=== PATIENT | female | born 1940 | race Caucasian/White ===

== ENCOUNTER 2022-11-26 05:20 | Inpatient (IN) | payer MEDICARE ==
[2022-11-26] VITALS (17 sets, daily range): BP systolic 55–138; BP diastolic 26–64
[~2022-11-26] VITALS: Ht 152.4 cm; Wt 75.9 kg
[~2022-11-26 05:20] MED LIST: APIX2.5T PO; ASPI-1444 PO; ATOR10TA69 PO; ATOR20TA65 PO; BUME1TAB6 PO; DOCU100C33 PO; DONE-51 PO; FAMO20TA8 PO; GABA-533 PO; ICOS1CAP PO; INSU500I SQ; LEVO88TA7 PO; LINA5TAB PO; METO-408 PO; SACU1TAB PO; SODIUM CHLORIDE 0.9% 1,000 ML ONE
[2022-11-26] MEDS ORDERED: DiphenhydrAMINE HCL 50 MG CAPSULE ONE (05:21)
[2022-11-26] MEDS ORDERED: ASPIRIN 81 MG CHEWABLE TABLET ONE (05:21)
[2022-11-26] MEDS ORDERED: DIAZEPAM 5 MG TABLET ONE (05:21)
[2022-11-26] MEDS ORDERED: SODIUM CHLORIDE 0.9% 1,000 ML IV ONE ×2 (05:30→10:15)
[2022-11-26 06:56] LABS: GLUCOMETER DEV NAME(LOC) SDS.; GLUCOSE,POINT OF CARE 238 MG/DL (70-110)
[2022-11-26] MEDS ORDERED: LIDOCAINE/PF 1% 30 ML VIAL ONE (07:00)
[2022-11-26] MEDS ORDERED: SODIUM BICARBONATE 50 MEQ/50 ML VIAL ONE (07:00)
[2022-11-26] MEDS ORDERED: IOHEXOL 300 MG/ML 100 ML VIAL ONE (07:00)
[2022-11-26] MEDS ORDERED: HEPARIN SODIUM 1000 UNITS/NS 1,000 ML ONE (07:00)
[2022-11-26] MEDS ORDERED: FentaNYL CITRATE PF 100 MCG/2 ML VIAL ONE (07:28)
[2022-11-26] MEDS ORDERED: MIDAZOLAM HCL 2 MG/2 ML VIAL ONE (07:28)
[2022-11-26] MEDS ORDERED: ASPIRIN 81 MG CHEWABLE TABLET PO ONE (07:30)
[2022-11-26] MEDS ORDERED: DiphenhydrAMINE HCL 50 MG CAPSULE PO ONE (07:30)
[2022-11-26] MEDS ORDERED: DIAZEPAM 5 MG TABLET PO ONE (07:30)
[2022-11-26] MEDS ORDERED: MIDAZOLAM HCL 2 MG/2 ML VIAL IVP ONE (08:00)
[2022-11-26] MEDS ORDERED: IOHEXOL 300 MG/ML 100 ML VIAL IARTER ONE (08:00)
[2022-11-26] MEDS ORDERED: LIDOCAINE 1% 30 ML/SOD BICARB 8.4% 4 ML SQ ONE (08:00)
[2022-11-26] MEDS ORDERED: FentaNYL CITRATE PF 100 MCG/2 ML VIAL IVP ONE ×3 (08:00→09:15)
[2022-11-26] MEDS ORDERED: HEPARIN SODIUM 1000 UNITS/NS 1,000 ML IARTER ONE (08:00)
[2022-11-26] MEDS ORDERED: HydrALAZINE HCL 20 MG/ML VIAL ONE ×2 (08:30→08:36)
[2022-11-26] MEDS ORDERED: NITROGLYCERIN 400 MCG/SUBLINGUAL SPRAY 4.9 GM BOTTLE SL ONE ×2 (08:32→08:45)
[2022-11-26] MEDS ORDERED: HydrALAZINE HCL 20 MG/ML VIAL IVP ONE ×2 (08:45)
[2022-11-26] MEDS ORDERED: PHENYLEPHRINE HCL IN 0.9% NACL 400 MCG/10 ML SYRINGE IVP ONE ×4 (09:19→09:30)
[2022-11-26] MEDS ORDERED: PHENYLEPHRINE 200 MG/D5%-WATER 250 ML IV PRN (09:30)
[2022-11-26] MEDS ORDERED: PHENYLEPHRINE 200 MG/D5%-WATER 250 ML IV ONE ×2 (09:31→09:49)
[2022-11-26] MEDS ORDERED: NALOXONE HCL 0.4 MG/ML VIAL ONE (09:58)
[2022-11-26] MEDS ORDERED: DEXTROSE 50%-WATER 25 GM/50 ML SYRINGE IVP PRN (17:00)
[2022-11-26] MEDS ORDERED: ACETAMINOPHEN 325 MG TABLET PO PRN (17:00)
[2022-11-26] MEDS ORDERED: DULO-114 PO (17:13)
[2022-11-26] MEDS ORDERED: FERR325T23 PO (17:13)
[2022-11-26] MEDS: ONDANSETRON HCL 4 MG/2 ML VIAL IVP PRN (17:21)
[2022-11-26] MEDS: INSULIN LISPRO 100 UNITS/ML SQ PRN ×2 (17:25→20:48)
[2022-11-26] MEDS ORDERED: [UNRECOGNIZED DRUG - OTHER] PO SCH (21:00)
[2022-11-26] MEDS ORDERED: DONEPEZIL HCL 10 MG TABLET PO SCH (21:00)
[2022-11-26] MEDS ORDERED: GABAPENTIN 400 MG CAPSULE PO SCH (21:00)
[2022-11-26] MEDS ORDERED: ATORVASTATIN CALCIUM 20 MG TABLET PO SCH (21:00)
[2022-11-26] MEDS ORDERED: NOREPINEPHRINE 8 MG/D5%-WATER 250 ML IV ONE (22:14)
[2022-11-26 22:18] LABS: BASOPHILS % (AUTO) 0.5 % (0.0-2.0); EOSINOPHILS % (AUTO) 0 % (1.0-6.0); HEMATOCRIT 33.8 % (36-46); HEMOGLOBIN 10.7 g/dL (12.0-16.0); LYMPHOCYTES # (AUTO) 0.7 K/uL (1.0-4.8); LYMPHOCYTES % (AUTO) 5.5 % (22.0-44.0); MEAN CORPUSCULAR HEMOGLOBIN 28.4 pg (26.0-34.0); MEAN CORPUSCULAR HGB CONC 31.7 G/dL (31.0-37.0); MEAN CORPUSCULAR VOLUME 90 fL (80-100); MONOCYTES # (AUTO) 0.7 K/uL (0.1-1.0); MONOCYTES % (AUTO) 5.9 % (2.0-9.0); NEUTROPHILS # (AUTO) 10.7 K/uL (1.8-7.7); NEUTROPHILS % (AUTO) 88.1 % (40.0-70.0); PLATELET COUNT (AUTO) 246 K/uL (150-450); RED BLOOD CELL COUNT(AUTO) 3.77 MIL/uL (4.00-5.20); RED CELL DISTRIBUTION WIDTH 15.5 % (11.5-14.5)
[2022-11-26 22:26] LABS: CALCIUM, TOTAL 8.6 mg/dL (8.8-10.5); CREATININE 2.52 mg/dL (0.60-1.30); POTASSIUM 5.8 mmol/L (3.5-5.1)
[2022-11-26 22:32] LABS: ALBUMIN 2.8 g/dL (3.4-5.0); BILIRUBIN,TOTAL 0.3 mg/dL (0.1-1.0); TOTAL PROTEIN, SERUM 7.1 g/dL (6.4-8.2)
[2022-11-26 22:36] LABS: LACTIC ACID 4.2 mmol/L (0.4-2.0)
[2022-11-26] MEDS ORDERED: NOREPINEPHRINE 8 MG/D5%-WATER 250 ML IV PRN (22:45)
[2022-11-26] MEDS ORDERED: DOPamine 400MG/D5W[STANDARD] 250 ML IV PRN (23:30)
[2022-11-27] VITALS: BP 96/57
[2022-11-27 04:00] VITALS: BP 127/44
[2022-11-27 05:20] LABS: BASOPHILS % (AUTO) 0.6 % (0.0-2.0); EOSINOPHILS % (AUTO) 0 % (1.0-6.0); HEMATOCRIT 31.1 % (36-46); HEMOGLOBIN 9.9 g/dL (12.0-16.0); LYMPHOCYTES # (AUTO) 0.9 K/uL (1.0-4.8); LYMPHOCYTES % (AUTO) 6.4 % (22.0-44.0); MEAN CORPUSCULAR HEMOGLOBIN 28.7 pg (26.0-34.0); MEAN CORPUSCULAR HGB CONC 31.8 G/dL (31.0-37.0); MEAN CORPUSCULAR VOLUME 90 fL (80-100); MONOCYTES # (AUTO) 1.4 K/uL (0.1-1.0); MONOCYTES % (AUTO) 9.7 % (2.0-9.0); NEUTROPHILS # (AUTO) 12.2 K/uL (1.8-7.7); NEUTROPHILS % (AUTO) 83.3 % (40.0-70.0); PLATELET COUNT (AUTO) 218 K/uL (150-450); RED BLOOD CELL COUNT(AUTO) 3.45 MIL/uL (4.00-5.20); RED CELL DISTRIBUTION WIDTH 15.9 % (11.5-14.5)
[2022-11-27] MEDS: INSULIN LISPRO 100 UNITS/ML SQ PRN ×3 (05:32→17:44)
[2022-11-27 05:34] LABS: ALBUMIN 2.3 g/dL (3.4-5.0); BILIRUBIN,TOTAL 0.4 mg/dL (0.1-1.0); CALCIUM, TOTAL 8.7 mg/dL (8.8-10.5); CREATININE 2.36 mg/dL (0.60-1.30); TOTAL PROTEIN, SERUM 6.4 g/dL (6.4-8.2)
[2022-11-27 05:42] LABS: GLUCOSE,POINT OF CARE 240 MG/DL (70-110)
[2022-11-27 05:42] LABS: GLUCOSE,POINT OF CARE 311 MG/DL (70-110)
[2022-11-27 05:46] LABS: GLUCOSE,POINT OF CARE 229 MG/DL (70-110)
[2022-11-27] MEDS ORDERED: LEVOTHYROXINE SODIUM 88 MCG TABLET PO SCH (06:30)
[2022-11-27] MEDS ORDERED: SODIUM POLYSTYRENE SULFONATE 15 GM/60 ML SUSPENSION BOTTLE PO ONE (06:45)
[2022-11-27] MEDS ORDERED: FUROSEMIDE 20 MG/2 ML VIAL IVP ONE (07:30)
[2022-11-27 08:00] VITALS: BP 126/58
[2022-11-27] MEDS: LinaGLIPtin 5 MG TABLET PO SCH ×2 (08:10→08:28)
[2022-11-27] MEDS: FAMOTIDINE 20 MG TABLET PO SCH ×2 (08:10→08:27)
[2022-11-27] MEDS: ONDANSETRON HCL 4 MG/2 ML VIAL IVP PRN (08:47)
[2022-11-27] MEDS ORDERED: PANTOPRAZOLE SODIUM 40 MG/VIAL IVP SCH (10:00)
[2022-11-27] MEDS ORDERED: CefTRIAXone 1 GM/DEXTROSE 50 ML IV SCH (10:15)
[2022-11-27 11:07] LABS: COVID AG,FIA SOURCE NASOPHARYNGEAL
[2022-11-27 11:14] LABS: CALCIUM, TOTAL 8.9 mg/dL (8.8-10.5); CREATININE 2.6 mg/dL (0.60-1.30); POTASSIUM 5.8 mmol/L (3.5-5.1)
[2022-11-27 12:00] VITALS: BP 106/43
[2022-11-27 12:41] LABS: GLUCOSE,POINT OF CARE 243 MG/DL (70-110)
[2022-11-27] MEDS ORDERED: SODIUM ZIRCONIUM CYCLOSILICATE 5 GM POWDER PACKET PO ONE (13:15)
[2022-11-27] MEDS ORDERED: BUMETANIDE 0.25 MG/ML 4 ML VIAL IVP ONE (13:15)
[2022-11-27 13:43] LABS: ABG BASE EXCESS -8.9 mmol/L (-2.0-3.0); ABG CARBOXYHEMOGLOBIN 0.3 % (0.0-1.5); ABG HCO3 17.6 mmol/L (22.0-26.0); ABG METHEMOGLOBIN 0.3 % (0.0-1.5); ABG OXYGEN CONTENT 13.2 mL/dL (15.0-23.0); ABG OXYHEMOGLOBIN 94.4 % (94.0-100.0); ABG PCO2 42 mmHg (35-45); ABG PH 7.255 (7.35-7.450); ABG TOTAL HEMOGLOBIN 9.9 G/dL (12.0-18.0); PO2, ARTERIAL BG 81.2 mmHg (71.0-79.0); SOURCE, BLOOD GAS ARTERIAL; TEMPERATURE, FAHRENHEIT, BG 98.6 FAHREN (96.0-98.6)
[2022-11-27 13:45] LABS: ABG A-A DIFF O2 589.8 mmHg (10-20.0); SITE, BLOOD GAS RT RADIAL
[2022-11-27 13:46] LABS: O2 DEVICE,BLOOD GAS NON REBREATHER (ROOM AIR)
[2022-11-27] MEDS ORDERED: ETOMIDATE 2 MG/ML 10 ML VIAL ONE (14:08)
[2022-11-27] MEDS ORDERED: ROCURONIUM BROMIDE 10 MG/ML 5 ML VIAL IVP ONE (14:15)
[2022-11-27] MEDS ORDERED: ETOMIDATE 2 MG/ML 10 ML VIAL IVP ONE (14:15)
[2022-11-27] MEDS ORDERED: SODIUM CHLORIDE 0.9% 500 ML IV ONE (14:41)
[2022-11-27] MEDS ORDERED: VASOPRESSIN 40 UNITS in DEXTROSE 5%-WATER 98 ML IV PRN (14:45)
[2022-11-27] MEDS ORDERED: HEPARIN SODIUM,PORCINE 1,000 UNITS/ML VIAL IVCATH ONE ×2 (15:15)
[2022-11-27] MEDS ORDERED: PROPOFOL 1000 MG/ISO-OSM 100 ML IV PRN ×2 (15:15→15:45)
[2022-11-27 15:43] LABS: ABG BASE EXCESS -4.7 mmol/L (-2.0-3.0); ABG CARBOXYHEMOGLOBIN 0.3 % (0.0-1.5); ABG HCO3 20.7 mmol/L (22.0-26.0); ABG METHEMOGLOBIN 0.3 % (0.0-1.5); ABG OXYGEN CONTENT 14.5 mL/dL (15.0-23.0); ABG OXYGEN SATURATION 98.9 % (95.0-98.0); ABG OXYHEMOGLOBIN 98.3 % (94.0-100.0); ABG PCO2 46 mmHg (35-45); ABG PH 7.295 (7.35-7.450); PO2, ARTERIAL BG 250.7 mmHg (71.0-79.0); SOURCE, BLOOD GAS ARTERIAL; TEMPERATURE, FAHRENHEIT, BG 98.6 FAHREN (96.0-98.6)
[2022-11-27 15:44] LABS: ABG A-A DIFF O2 416.5 mmHg (10-20.0); O2 DEVICE,BLOOD GAS VENTILATOR (ROOM AIR); PEEP,BG 5 cm H2O; SITE, BLOOD GAS RT RADIAL; VT, ABG 375 ml
[2022-11-27 16:00] VITALS: BP 110/55
[2022-11-27] MEDS ORDERED: DOXYCYCLINE HYCLATE 100 MG in DEXTROSE 5%-WATER 100 ML IV SCH (16:00)
[2022-11-27] MEDS ORDERED: ATORVASTATIN CALCIUM 40 MG TABLET PO SCH (16:00)
[2022-11-27] MEDS ORDERED: ASPIRIN 81 MG CHEWABLE TABLET PO SCH (16:00)
[2022-11-27] MEDS ORDERED: SODIUM CHLORIDE 0.9% 100 ML ONE (16:12)
[2022-11-27] MEDS ORDERED: IOHEXOL 350 MG/ML 100 ML VIAL ONE (16:12)
[2022-11-27 16:21] VITALS: BP 107/43
[2022-11-27] MEDS ORDERED: CefTRIAXone SODIUM 2 GM in DEXTROSE 5%-WATER 50 ML IV SCH (17:00)
[2022-11-27 17:47] LABS: ABG BASE EXCESS -3.3 mmol/L (-2.0-3.0); ABG CARBOXYHEMOGLOBIN 0.3 % (0.0-1.5); ABG HCO3 22.1 mmol/L (22.0-26.0); ABG METHEMOGLOBIN 0.3 % (0.0-1.5); ABG OXYHEMOGLOBIN 98.4 % (94.0-100.0); ABG PCO2 36 mmHg (35-45); ABG PH 7.392 (7.35-7.450); PO2, ARTERIAL BG 230.7 mmHg (71.0-79.0); SOURCE, BLOOD GAS ARTERIAL; TEMPERATURE, FAHRENHEIT, BG 99.4 FAHREN (96.0-98.6)
[2022-11-27 17:49] LABS: ABG A-A DIFF O2 300.8 mmHg (10-20.0); O2 DEVICE,BLOOD GAS VENTILATOR (ROOM AIR); PEEP,BG 5 cm H2O; SITE, BLOOD GAS RT RADIAL; VT, ABG 375 ml
[2022-11-27 17:54] LABS: CALCIUM, TOTAL 8.3 mg/dL (8.8-10.5); CREATININE 2.91 mg/dL (0.60-1.30); POTASSIUM 4.9 mmol/L (3.5-5.1)
[2022-11-27 18:41] LABS: GLUCOSE,POINT OF CARE 204 MG/DL (70-110)
[2022-11-27 20:54] LABS: APPEARANCE,URINE HAZY (CLEAR); BILIRUBIN,URINE NEGATIVE (NEGATIVE); GLUCOSE, URINE (UA) 70-100 mg/dL (NEGATIVE); KETONES,URINE NEGATIVE (NEGATIVE); LEUKOCYTE ESTERASE ,URINE SMALL (NEGATIVE); NITRATE,URINE NEGATIVE (NEGATIVE); OCCULT BLOOD,URINE MODERATE (NEGATIVE); PH,URINE 5.5 (5.0-8.0); PROTEIN,URINE 300-600,SEE CONFIRM mg/dL (NEGATIVE); SPECIFIC GRAVITIY, URINE 1.031 (1.003-1.030); UROBILINOGEN,URINE <=1.0 mg/dL (<=1.0)
[2022-11-27 20:58] LABS: SODIUM,URINE RANDOM 47 mmol/l (20-110); UREA NITROGEN,URINE RANDOM 305 mg/dL (350-1000)
[2022-11-27 21:05] LABS: BACTERIA,URINE Few /HPF (None Seen); SULFOSALICYLIC ACID,URINE 3+ (Negative)
[2022-11-27 21:06] LABS: SQUAMOUS EPITHELIAL CELL,UR Rare /LPF (None Seen)
== END 2022-11-27 22:15 | disposition short-term general hospital (02) | DRG 286 ==
LOC: CATHLAB 05:20 → ICU 10:30
PROVIDERS: ADMIT Internal Medicine; ATTEND Internal Medicine Interventional Cardiology
PROC: 4A023N8 Measurement of Cardiac Sampling and Pressure, Bilateral, Percutaneous Approach (ICD-10-PCS; principal; 2022-11-26)
PROC: B211YZZ Fluoroscopy of Multiple Coronary Arteries using Other Contrast (ICD-10-PCS; 2022-11-26)
PROC: B215YZZ Fluoroscopy of Left Heart using Other Contrast (ICD-10-PCS; 2022-11-26)
PROC: 5A1935Z Respiratory Ventilation, Less than 24 Consecutive Hours (ICD-10-PCS; 2022-11-26)
PROC: 0BH17EZ Insertion of Endotracheal Airway into Trachea, Via Natural or Artificial Opening (ICD-10-PCS; 2022-11-26)
PROC: 0DH67UZ Insertion of Feeding Device into Stomach, Via Natural or Artificial Opening (ICD-10-PCS; 2022-11-26)
PROC: 02HV33Z Insertion of Infusion Device into Superior Vena Cava, Percutaneous Approach (ICD-10-PCS; 2022-11-27)
PROC: B548ZZA Ultrasonography of Superior Vena Cava, Guidance (ICD-10-PCS; 2022-11-27)
DX: I13.0 Hypertensive heart and chronic kidney disease with heart failure and stage 1 through stage 4 chronic kidney disease, or unspecified chronic kidney disease (principal); I50.33 Acute on chronic diastolic (congestive) heart failure; J96.21 Acute and chronic respiratory failure with hypoxia; R57.0 Cardiogenic shock; E87.4 Mixed disorder of acid-base balance; G93.40 Encephalopathy, unspecified; N17.9 Acute kidney failure, unspecified; I95.9 Hypotension, unspecified; F03.90 Unspecified dementia, unspecified severity, without behavioral disturbance, psychotic disturbance, mood disturbance, and anxiety; I25.10 Atherosclerotic heart disease of native coronary artery without angina pectoris; I34.0 Nonrheumatic mitral (valve) insufficiency; I27.20 Pulmonary hypertension, unspecified; E03.9 Hypothyroidism, unspecified; K21.9 Gastro-esophageal reflux disease without esophagitis; D63.8 Anemia in other chronic diseases classified elsewhere; E11.22 Type 2 diabetes mellitus with diabetic chronic kidney disease; N18.30 Chronic kidney disease, stage 3 unspecified; E11.51 Type 2 diabetes mellitus with diabetic peripheral angiopathy without gangrene; E87.5 Hyperkalemia; Z79.01 Long term (current) use of anticoagulants; Z79.899 Other long term (current) drug therapy; Z79.4 Long term (current) use of insulin; Z79.82 Long term (current) use of aspirin; Z79.84 Long term (current) use of oral hypoglycemic drugs; Z86.73 Personal history of transient ischemic attack (TIA), and cerebral infarction without residual deficits
CPT/HCPCS: 36600; 70450; 70496; 70498; 71045; 80048; 80053; 81001; 81002; 82271; 82570; 82805; 82962; 83605; 84145; 84300; 84540; 85025; 87040; 87070; 87081; 87086; 87186; 87205; 93005; 93306; 93460; 94002; C9113; G0378; J0360; J0696; J1265; J1644; J1940; J2250; J2310; J2370; J2405; J2704; J3010; J3490; J7030; J7040; J7050; J7060; Q9967; 36415-L1; 36415-TC